=== PATIENT | male | born 2000 | race Caucasian/White ===

== ENCOUNTER 2019-03-29 08:35 | Day surgery (SDC) | payer OTHER | END 2019-03-29 16:45 | disposition home or self-care (01) | LOC: CIR.AMB 08:35 → ADM 09:30 → CIR.AMB 09:30 | DX: S53.32XA Traumatic rupture of left ulnar collateral ligament, initial encounter (principal); G56.22 Lesion of ulnar nerve, left upper limb ==

== ENCOUNTER 2023-03-28 02:26 | Emergency (ER) | payer OTHER ==
[~2023-03-28] VITALS: Ht 170.2 cm; Wt 75.7 kg
[2023-03-28] MEDS ORDERED: KETOROLAC TROMETHAMINE 10 MG TABLET PO STA (03:31)
[2023-03-28] MEDS ORDERED: KETO10TA2 PO (04:03)
== END 2023-03-28 04:29 ==
LOC: ER 02:26
DX: S30.1XXA Contusion of abdominal wall, initial encounter (principal); V49.9XXA Car occupant (driver) (passenger) injured in unspecified traffic accident, initial encounter; Y93.9 Activity, unspecified; Y92.413 State road as the place of occurrence of the external cause; Y99.9 Unspecified external cause status

== ENCOUNTER 2024-09-15 13:58 | Emergency (ER) | payer OTHER ==
[~2024-09-15] VITALS: Ht 182.9 cm; Wt 117.9 kg
[~2024-09-15 13:58] MED LIST: KETO10TA2 PO
[2024-09-15] MEDS ORDERED: KETOROLAC TROMETHAMINE 60 MG VIAL IM ONE (15:45)
[2024-09-15] MEDS ORDERED: DICLOFENAC SODI50 MG PO (17:52)
== END 2024-09-15 19:13 ==
LOC: ER 13:58
DX: G89.11 Acute pain due to trauma (principal); M79.672 Pain in left foot

== ENCOUNTER 2025-02-03 03:42 | Emergency (ER) | payer OTHER ==
[~2025-02-03] VITALS: Ht 182.9 cm; Wt 115.7 kg
[~2025-02-03 03:42] MED LIST changes: +DICLOFENAC SODI50 MG PO
[2025-02-03 04:13] VITALS: BP 126/79; O2SAT 99
[2025-02-03] MEDS ORDERED: LIDOCAINE HCL 1% 10ML VIAL ONE (04:16)
[2025-02-03] MEDS ORDERED: CEFTRIAXONE SODIUM 2,000 MG VIAL IM STA (04:48)
[2025-02-03] MEDS ORDERED: TETANUS & DIPHTHERIA TOX,ADULT 0.5 ML VIAL IM STA (04:49)
[2025-02-03] MEDS ORDERED: LIDOCAINE HCL 1% 10ML VIAL IJ STA (04:50)
[2025-02-03] MEDS ORDERED: CEFTRIAXONE SODIUM 2,000 MG VIAL ONE (04:55)
[2025-02-03] MEDS ORDERED: DIPHTH,PERTUSS(ACELL),TET VAC 0.5 ML SYRINGE IM ONE (04:56)
== END 2025-02-03 05:35 | disposition home or self-care (01) ==
LOC: ER 03:42
DX: S61.421A Laceration with foreign body of right hand, initial encounter (principal); W25.XXXA Contact with sharp glass, initial encounter; Y93.89 Activity, other specified; Y92.89 Other specified places as the place of occurrence of the external cause
CPT/HCPCS: 12001; 90471; 90714; J1670

== ENCOUNTER 2025-02-08 17:26 | Emergency (ER) | payer OTHER ==
[~2025-02-08] VITALS: Ht 182.9 cm; Wt 117.9 kg
== END 2025-02-09 03:25 | disposition home or self-care (01) ==
LOC: ER 17:27
DX: Z48.02 Encounter for removal of sutures (principal)